=== PATIENT | female | born 1990 | race American Indian/Alaskan Native ===

== ENCOUNTER 2016-07-02 09:04 | Emergency (ER) | payer OTHER ==
--- NOTE | 2016-07-02 12:01 | Emergency Department Report ---
- General Chief complaint: Skin/Abscess/Foreign Body Stated complaint: LIP PAIN Time Seen by Provider: 07/02/16 10:36 Source: patient Mode of arrival: Ambulatory Limitations: No Limitations - History of Present Illness Initial comments: Patient presents with discoloration (darker spots than normal) on her lips x 4 days. She also admits to itching/tingling of her lips that started before that but unsure of when. Denies allergies, change in makeup, detergent, soaps, lotions. Medical history of any allergies. Denies throat swelling, difficulty breathing. MD complaint: other -: Sudden Tetanus Up to Date: yes - Related Data Previous Rx's Medication Instructions Recorded Last Taken Type Diphenhydramine HCl [Benadryl 25 mg PO Q6HR PRN #20 tablet 07/02/16 Unknown Rx Allergy TAB] EPINEPHrine [Epipen 2-Landon] 0.3 mg IJ ONCE #1 ml 07/02/16 Unknown Rx Allergies Allergy/AdvReac Type Severity Reaction Status Date / Time No Known Allergies Allergy Unverified 07/02/16 09:25 Abscess Boil HPI - HPI Chief Complaint: Skin/Abscess/Foreign Body Stated Complaint: LIP PAIN Time Seen by Provider: 07/02/16 10:36 Home Medications: Previous Rx's Medication Instructions Recorded Last Taken Type Diphenhydramine HCl [Benadryl 25 mg PO Q6HR PRN #20 tablet 07/02/16 Unknown Rx Allergy TAB] EPINEPHrine [Epipen 2-Landon] 0.3 mg IJ ONCE #1 ml 07/02/16 Unknown Rx Allergies/Adverse Reactions: Allergies Allergy/AdvReac Type Severity Reaction Status Date / Time No Known Allergies Allergy Unverified 07/02/16 09:25 ED Review of Systems ROS: Stated complaint: LIP PAIN Other details as noted in HPI Constitutional: denies: chills, fever Eyes: denies: eye pain, eye discharge, vision change ENT: denies: ear pain, throat pain Respiratory: denies: cough, shortness of breath, wheezing Cardiovascular: denies: chest pain, palpitations Genitourinary: denies: urgency, dysuria, discharge Musculoskeletal: denies: back pain, joint swelling, arthralgia Skin: as per HPI. denies: rash, lesions Neurological: denies: headache, weakness, paresthesias ED Past Medical Hx - Past Medical History Previous Medical History?: No - Surgical History Past Surgical History?: No - Social History Smoking Status: Never Smoker Substance Use Type: None - Medications Home Medications: Home Medications Medication Instructions Recorded Confirmed Last Taken Type Diphenhydramine HCl [Benadryl 25 mg PO Q6HR PRN #20 tablet 07/02/16 Unknown Rx Allergy TAB] EPINEPHrine [Epipen 2-Landon] 0.3 mg IJ ONCE #1 ml 07/02/16 Unknown Rx ED Physical Exam - General Limitations: No Limitations General appearance: alert, in no apparent distress - Head Head exam: Present: atraumatic, normocephalic - Eye Eye exam: Present: normal appearance - ENT ENT exam: Present: mucous membranes moist, TM's normal bilaterally - Expanded ENT Exam Expanded Mouth exam: Present: normal external inspection Teeth exam: Present: normal inspection Throat exam: Positive: normal inspection - Neck Neck exam: Present: normal inspection, full ROM. Absent: lymphadenopathy - Respiratory Respiratory exam: Present: normal lung sounds bilaterally. Absent: respiratory distress, wheezes, rales, rhonchi, stridor - Cardiovascular Cardiovascular Exam: Present: regular rate, normal rhythm. Absent: systolic murmur, diastolic murmur, rubs, gallop - GI/Abdominal GI/Abdominal exam: Present: soft, normal bowel sounds - Skin Skin exam: Present: warm, dry, intact, normal color, other (bilateral lips with areas of darkening, no other abnormalities noticed at this time, pt admits to mild swelling, this is my first encounter with pt so have no reference.). Absent: rash, cyanosis, erythema, vesicles, petechiae, pallor, abrasion, ecchymosis ED Course Vital Signs 07/02/16 09:25 Temperature 98.5 F Pulse Rate 79 Respiratory 16 Rate Blood Pressure 121/77 O2 Sat by Pulse 100 Oximetry ED Medical Decision Making - Medical Decision Making Patient presents with what appears to be an allergic reaction, unsure of cause. Solumedrol given, will give rx for benedryl and epi-pen and advise to f/u with an fence installer foreman. Patient states understanding. - Differential Diagnosis allergic reaction, eczema Critical Care Time: No Critical care attestation.: If time is entered above; I have spent that time in minutes in the direct care of this critically ill patient, excluding procedure time. ED Disposition Clinical Impression: Allergic reaction Disposition: DISCHARGED TO HOME OR SELFCARE Is pt being admited?: No Does the pt Need Aspirin: No Condition: Stable Instructions: Urticaria (ED), Allergies (ED) Additional Instructions: Follow up with fence installer foreman as discussed. Discussed use of epi-pen with patient, she states understanding. Prescriptions: Diphenhydramine HCl [Benadryl Allergy TAB] 25 mg PO Q6HR PRN #20 tablet PRN Reason: Itching EPINEPHrine [Epipen 2-Landon] 0.3 mg IJ ONCE #1 ml Referrals: PRIMARY CARE, [Primary Care Provider] - 3-5 Days [facility] [Outside] - 3-5 Days GIL KIM MD [Referring] - 3-5 Days MANSOOR TEMPLE MD [Referring] - 3-5 Days Forms: Work/School Release Form(ED) Time of Disposition: 12:06
[2016-07-02 12:19] VITALS: BP 104/69
== END 2016-07-02 12:32 | disposition home or self-care (01) ==
LOC: ED 09:04
DX: T78.40XA Allergy, unspecified, initial encounter (principal); Y92.9 Unspecified place or not applicable
CPT/HCPCS: 96372; 99282; J2930